=== PATIENT | male | born 2000 | race Caucasian/White ===

== ENCOUNTER 2023-01-01 07:34 | Day surgery (SDC) | payer BC ==
[2022-12-31 10:58] VITALS: BMI 27.8
[2023-01-01] MEDS ORDERED: fentaNYL PF 100 MCG/2 ML SYRINGE ONE (08:19)
[2023-01-01] MEDS ORDERED: KETAMINE 100 MG/ML (5ML VIAL) ONE (08:19)
[2023-01-01] MEDS ORDERED: Lidocaine 4% Topical Sol 50 ML BOT ONE (08:20)
[2023-01-01] MEDS ORDERED: Ferric Subsulfate 8 ML TOPICAL SOLN ONE (09:35)
[2023-01-01] MEDS ORDERED: fentaNYL 50 mcg/mL 1 mL Vial ONE (11:23)
[2023-01-01] MEDS ORDERED: Meperidine HCl/PF 25 MG/ML VIAL ONE (11:23)
[2023-01-01] MEDS ORDERED: Hydrocodone-Acetamin 15 ML UDCUP ONE (12:52)
== END 2023-01-01 13:25 | disposition home or self-care (01) ==
LOC: SDC 07:34
PROVIDERS: ATTEND Specialist
PROC: 0CBPXZZ Excision of Tonsils, External Approach (ICD-10-PCS; principal; 2023-01-01)
DX: J35.01 Chronic tonsillitis (principal)
CPT/HCPCS: 88304; J2175; J3010